=== PATIENT | male | born 1985 | race Hispanic/Latino ===

== ENCOUNTER → 2023-07-04 | Outpatient (CLI) | payer BC | END | disposition home or self-care (01) | LOC: RAH 16:00 | DX: M19.072 Primary osteoarthritis, left ankle and foot (principal); M19.071 Primary osteoarthritis, right ankle and foot; M79.89 Other specified soft tissue disorders; M77.32 Calcaneal spur, left foot; M25.572 Pain in left ankle and joints of left foot; M25.571 Pain in right ankle and joints of right foot | CPT/HCPCS: 73600 ==